=== PATIENT | female | born 1990 | race Caucasian/White ===

== ENCOUNTER 2017-05-11 07:14 | Emergency (ER) | payer MEDICAID, OTHER ==
[~2017-05-11] VITALS: Ht 167.6 cm; Wt 99.8 kg
--- NOTE | 2017-05-11 07:23 | ED EENT ---
History of Present Illness General Chief Complaint: Oral/Throat Problems Stated Complaint: FEVER SORE THROAT EAR PAIN Source: family Exam Limitations: no limitations History of Present Illness Time seen by provider: 07:26 Initial Comments This 27-year-old white female presents with severe sore throat and fever which began yesterday. The patient denies associated significant photophobia or nuchal rigidity. She has had nausea without vomiting. The patient denies previous mononucleosis. The patient is breast-feeding currently. Patient denies family members or close contacts with similar symptoms. Allergies and Home Medications Allergies Coded Allergies: No Known Drug Allergies (Unverified , 05/11/17) Review of Systems Constitutional: see HPI, No chills, fever, malaise Eyes: Denies Photophobia Ears: Pain Nose: denies epistaxis Mouth: denies pain Throat: see HPI, pain, denies neck stiffness, denies hoarse Respiratory: No cough Cardiovascular: No chest pain Gastrointestinal: No abdominal pain, No diarrhea, nausea, No vomiting Musculoskeletal: No back pain Skin: No rash Neurological: No Symptoms Reported Hematologic/Lymphatic: No Symptoms Reported Immunological/Allergic: no symptoms reported Past [id number]-[id number]-[id number] Hx Patient Social History Recent Foreign Travel: No Contact w/Someone Who Travel: No Reviewed Nursing Assessment Reviewed/Agree w Nursing PMH: Yes Physical Exam Vital Signs Vital Sign - Last 12Hours 05/11/17 07:20 Temp 97.5 Pulse 86 Resp 16 B/P (MAP) 122/82 General Appearance: WD/WN, mild distress Eyes: bilateral eye normal inspection Ears: bilateral ear auricle normal, bilateral ear canal normal Nose: normal inspection Mouth/Throat: other (moderate pharyngeal erythema was noted no pustules or exudates were present) Neck: full range of motion, supple, normal inspection Cardiovascular: normal peripheral pulses, regular rate, rhythm Respiratory: chest non-tender, lungs clear, normal breath sounds Gastrointestinal: normal bowel sounds, non tender, soft Neurologic/Psychiatric: no motor/sensory deficits, alert, normal mood/affect, oriented x 3 Skin: normal color, warm/dry Progress/Results/Core Measures Results/Orders Lab Results Laboratory Tests Test 05/11/17 07:30 Range/Units White Blood Count 11.0 4.3-11.0 10^3/uL Red Blood Count 5.23 4.35-5.85 10^6/uL Hemoglobin 14.9 11.5-16.0 G/DL Hematocrit 44 35-52 % Mean Corpuscular Volume 85 80-99 FL Mean Corpuscular Hemoglobin 29 25-34 PG Mean Corpuscular Hemoglobin Concent 34 32-36 G/DL Red Cell Distribution Width 13.5 10.0-14.5 % Platelet Count 230 130-400 10^3/uL Mean Platelet Volume 12.4 H 7.4-10.4 FL Neutrophils (%) (Auto) 87 H 42-75 % Lymphocytes (%) (Auto) 8 L 12-44 % Monocytes (%) (Auto) 5 0-12 % Eosinophils (%) (Auto) 0 0-10 % Basophils (%) (Auto) 0 0-10 % Neutrophils # (Auto) 9.5 H 1.8-7.8 X 10^3 Lymphocytes # (Auto) 0.9 L 1.0-4.0 X 10^3 Monocytes # (Auto) 0.5 0.0-1.0 X 10^3 Eosinophils # (Auto) 0.0 0.0-0.3 10^3/uL Basophils # (Auto) 0.0 0.0-0.1 10^3/uL Monoscreen NEGATIVE NEGATIVE Group A Streptococcus Screen POSITIVE H NEGATIVE My Orders Orders - NAYA ROSE MD Ibuprofen Tablet (Motrin Tablet) (05/11/17 07:30) Rapid Strep A Screen (05/11/17 07:24) Cbc With Automated Diff (05/11/17 07:24) Monotest (05/11/17 07:24) Manual Differential (05/11/17 07:30) Penicillin G Benzathine Inject (Bicillin (05/11/17 08:00) Medications Given in ED Current Medications Medications Dose Ordered Sig/Y[place]elin Route Start Time Stop Time Status Last Admin Dose Admin Ibuprofen 800 mg ONCE ONCE PO 05/11/17 07:30 05/11/17 07:31 DC 05/11/17 07:37 800 MG Vital Signs/I&O Vital Sign - Last 12Hours 05/11/17 05/11/17 07:20 07:37 Temp 97.5 101.3 Pulse 86 Resp 16 B/P (MAP) 122/82 Progress Note : Time: 07:53 Progress Note The patient's strep screen was positive. The patient received benzathine penicillin 1.2 million units IM. Departure Impression Impression: Primary Impression: Streptococcal sore throat Disposition: 01 HOME, SELF-CARE Condition: Improved Departure-Patient Inst. Decision time for Depature: 08:08 Referrals: [facility],LOCAL PHYSICIAN (PCP) Primary Care Physician Patient Instructions: Strep Throat (DC) Add. Discharge Instructions: Ibuprofen alternating with Tylenol for sore throat. Warm saline gargles. Follow-up with [facility] or [facility] on Friday. Return of any problems or questions. All discharge instructions reviewed with patient and/or family. Voiced understanding. NAYA ROSE MD May 11, 2017 07:22
[2017-05-11] MEDS ORDERED: IBUPROFEN 800 MG (MOTRIN) TAB PO ONE (07:30)
[2017-05-11 07:38] LABS: BASOPHILS % (AUTO) 0 % (0-10); EOSINOPHILS % (AUTO) 0 % (0-10); LYMPHOCYTES # (AUTO) 0.9 X 10^3 (1.0-4.0); LYMPHOCYTES % (AUTO) 8 % (12-44); MEAN CORPUSCULAR HEMOGLOBIN 29 PG (25-34); MEAN CORPUSCULAR HGB CONC 34 G/DL (32-36); MEAN CORPUSCULAR VOLUME 85 FL (80-99); MEAN PLATELET VOLUME 12.4 FL (7.4-10.4); MONOCYTES # (AUTO) 0.5 X 10^3 (0.0-1.0); MONOCYTES % (AUTO) 5 % (0-12); NEUTROPHILS # (AUTO) 9.5 X 10^3 (1.8-7.8); NEUTROPHILS % (AUTO) 87 % (42-75); PLATELET COUNT 230 10^3/uL (130-400); RED BLOOD COUNT 5.23 10^6/uL (4.35-5.85); RED CELL DISTRIBUTION WIDTH 13.5 % (10.0-14.5)
[2017-05-11] MEDS ORDERED: PEN G BENZ (BICILLIN LA) 1.2 M UN/2 ML SYR IM ONE (08:00)
[2017-05-11 08:09] LABS: BASOPHILS % (MANUAL) 1 %; LYMPHOCYTES % (MANUAL) 8 %; NEUTROPHILS % (MANUAL) 87 %
[2017-05-11 08:25] VITALS: BP 120/78
== END 2017-05-11 08:25 | disposition home or self-care (01) ==
LOC: EDUNIT# 07:14 → ER 07:18
DX: J02.0 Streptococcal pharyngitis (principal)
CPT/HCPCS: 36415; 85007; 85027; 86308; 87430; 99282